=== PATIENT | female | born 1940 | race Two or more races ===

== ENCOUNTER 2018-03-17 14:18 | Outpatient (CLI) | payer OTHER ==
[~2018-03-17 14:18] MED LIST: HYZAAR 100-121 UDTAB PO
== END 2018-03-17 14:28 | disposition home or self-care (01) ==
LOC: RAD 501 14:18
DX: M25.551 Pain in right hip (principal); M25.531 Pain in right wrist; M19.041 Primary osteoarthritis, right hand

== ENCOUNTER 2018-09-07 06:00 | Day surgery (SDC) | payer OTHER ==
[~2018-09-07 06:00] MED LIST changes: +ASA-EC81 MG; +ESTAZOLAM2 MG; +LOSARTAN-HCTZ1 EAC2 PO; +ZOLOFT25 MG PO
[2018-09-07] MEDS ORDERED: POLY119PG PO (09:08)
[2018-09-07] MEDS ORDERED: PERCOCET 5-3251 EACH PO (09:08)
[2018-09-07] MEDS ORDERED: SURFAK240 M1 PO (09:11)
== END 2018-09-07 10:55 | disposition home or self-care (01) ==
LOC: CIR.AMB 06:00
DX: K80.10 Calculus of gallbladder with chronic cholecystitis without obstruction (principal); K42.9 Umbilical hernia without obstruction or gangrene; K43.2 Incisional hernia without obstruction or gangrene

== ENCOUNTER 2018-09-10 19:12 | Emergency (ER) | payer OTHER ==
[~2018-09-10] VITALS: Ht 157.5 cm; Wt 83.5 kg
[~2018-09-10 19:12] MED LIST changes: +PERCOCET 5-3251 EACH PO; +POLY119PG PO; +SURFAK240 M1 PO
[2018-09-10] MEDS ORDERED: ASPIR 8181 MG (19:20)
[2018-09-10] MEDS ORDERED: LOSARTAN-HCTZ1 EAC1 (19:21)
== END 2018-09-10 21:52 | disposition home or self-care (01) ==
LOC: ER 19:12
DX: K21.9 Gastro-esophageal reflux disease without esophagitis (principal); Z90.49 Acquired absence of other specified parts of digestive tract

== ENCOUNTER 2018-09-17 06:30 | Emergency (ER) | payer OTHER ==
[~2018-09-17] VITALS: Ht 157.5 cm; Wt 83.9 kg
[~2018-09-17 06:30] MED LIST changes: +ASPIR 8181 MG; +LOSARTAN-HCTZ1 EAC1
== END 2018-09-17 10:10 | disposition home or self-care (01) ==
LOC: ER 06:30
DX: K21.9 Gastro-esophageal reflux disease without esophagitis (principal)

== ENCOUNTER 2024-08-30 08:42 | Outpatient (CLI) | payer OTHER | END 2024-08-30 08:49 | disposition home or self-care (01) | LOC: RAD 08:42 | PROVIDERS: ATTEND Orthopaedic Surgery | DX: M79.644 Pain in right finger(s) (principal) ==